=== PATIENT | male | born 2000 | race African-American/Black ===

== ENCOUNTER 2018-07-29 10:57 | Emergency (ER) | payer MEDICAID ==
[2018-07-29] VITALS (17 sets, daily range): BP systolic 106–187; BP diastolic 67–110
[~2018-07-29] VITALS: Ht 182.9 cm; Wt 79.4 kg
[~2018-07-29 10:57] MED LIST: NKM
[2018-07-29] MEDS ORDERED: DiphenhydrAMINE 50mg/ml Inj IM ONE (11:00)
[2018-07-29] MEDS ORDERED: LORazepam Inj 2mg/ml 1ml IM ONE (11:00)
[2018-07-29] MEDS ORDERED: Haloperidol 5mg/ml Inj IM ONE (11:00)
[2018-07-29 11:39] LABS: APPEARANCE,URINE CLEAR; BILIRUBIN, URINE 1+ (NEGATIVE); GLUCOSE, URINE (UA) NEGATIVE (NEGATIVE); KETONES,URINE NEGATIVE (NEGATIVE); LEUKOCYTE ESTERASE ,URINE 1+ (NEGATIVE); NITRITE,URINE NEGATIVE (NEGATIVE); PH,URINE 6 (4.5-8.0); PROTEIN,URINE 2+ (NEGATIVE); UROBILINOGEN,URINE 8 MG/DL (0.0-1.0)
[2018-07-29 11:41] LABS: COLOR,URINE YELLOW
[2018-07-29 11:45] LABS: BASOPHILS % (AUTO) 1.2 % (0.0-2.0); EOSINOPHILS % (AUTO) 0.2 % (0.0-3.0); HEMATOCRIT 45.2 % (42.0-52.0); HEMOGLOBIN 15.1 G/DL (14.2-18.0); LYMPHOCYTES % (AUTO) 54.9 % (20.0-45.0); MEAN CORPUSCULAR VOLUME 86 FL (80-99); MONOCYTES % (AUTO) 6.4 % (1.0-10.0); NEUTROPHILS % (AUTO) 37.3 % (45.0-75.0); PLATELET COUNT 212 K/UL (150-450); RED BLOOD COUNT 5.28 M/UL (4.70-6.10); RED CELL DISTRIBUTION WIDTH 11.6 % (11.6-14.8)
[2018-07-29 11:48] LABS: ANION GAP 10 mmol/L (5-15); BLOOD UREA NITROGEN 15 mg/dL (7-18); CALCIUM 9.5 MG/DL (8.5-10.1); CARBON DIOXIDE 26 MMOL/L (21-32); CHLORIDE 105 MMOL/L (98-107); CREATININE 1.3 MG/DL (0.55-1.30); POTASSIUM 3.3 MMOL/L (3.5-5.1); SODIUM 141 MMOL/L (136-145)
[2018-07-29 11:59] LABS: ALANINE AMINOTRANSFERASE 26 U/L (12-78); ALBUMIN 4.2 G/DL (3.4-5.0); ALBUMIN/GLOBULIN RATIO 1.4 (1.0-2.7); ALKALINE PHOSPHATASE 57 U/L (46-116); ASPARTATE AMINO TRANSFERASE 25 U/L (15-37); BILIRUBIN,TOTAL 1.1 MG/DL (0.2-1.0); CREATINE KINASE 204 U/L (26-308)
[2018-07-29 12:00] LABS: BILIRUBIN,DIRECT 0.2 MG/DL (0.0-0.3)
[2018-07-29] MEDS ORDERED: LORazepam Inj 2mg/ml 1ml ONE (12:46)
[2018-07-29] MEDS ORDERED: LORazepam Inj 2mg/ml 1ml IV ONE (13:00)
--- NOTE | 2018-07-29 13:40 | Diagnostic Imaging Report ---
INDICATION: Acute loss of consciousness TECHNIQUE: Multiple, contiguous 2.5 mm axial cuts of the brain are obtained from the posterior fossa to the cranial vault. Sagittal and coronal reformatted images provided. No IV contrast is administered. One or more of the following dose reduction techniques were used: automated exposure control, adjustment of the mA and/or kV according to patient size, use of iterative reconstruction technique. COMPARISON: None FINDINGS: No intracranial hemorrhage, abnormal intra- or extra-axial collections or parenchymal lesions are seen. The shape and configuration of the cortical sulci, basal cisterns and ventricles are within normal limits. The perez-white differentiation is preserved. No evidence of mass effect, midline shift, or edema. The osseous structures are unremarkable. The visualized portions of the paranasal sinuses are clear. CTDI: 70.38 mGy DLP: 1439.2 mGycm
--- NOTE | 2018-07-29 15:45 | Emergency Room Report ---
History of Present Illness General Chief Complaint: Behavioral Complaint Source: EMS (Eyal Rodarte MD) Present Illness HPI Patient brought in by EMS and [employer]. There was a stand off as the patient was in a car and refused to come out. Paramedics found the patient in agitated delirium he gave the patient 5 of Versed IM. After that the patient was able to be handcuffed to the gurney and brought to us. Mask was placed. They had no prior history on the patient. No drug paraphernalia was seen at or in the car. Glucose in the field was normal. Patient tachycardic. He did communicate with paramedics or PD. No other history is available at this time. (Eyal Rodarte MD) Allergies: Coded Allergies: No Known Allergies (Unverified , 07/29/18) Patient History Limited by: medical condition Past Medical History: see triage record Social History: Reports: drug use - see tox Social History Narrative unknown Reviewed Nursing Documentation: PMH: Agreed; PSxH: Agreed (Eyal Rodarte MD) Nursing Documentation-PMH Past Medical History: No Stated History (Eyal Rodarte MD) Review of Systems All Other Systems: limited (Eyal Rodarte MD) Physical Exam Vital Signs Date Time Temp Pulse Resp B/P (MAP) Pulse Ox O2 Delivery O2 Flow Rate FiO2 07/29/18 10:46 98.1 95 16 116/72 95 Room Air General Appearance: other - agitated and refusing to cooperate, but then slightly lethargic Head: normocephalic, atraumatic Eyes: bilateral eye PERRL, bilateral eye EOMI, bilateral eye Scleral Injection ENT: moist mucus membranes - no lingual trauma Neck: full range of motion, supple Respiratory: chest non-tender, lungs clear, normal breath sounds Cardiovascular #1: regular rate, rhythm Cardiovascular #2: 2+ radial (R) Gastrointestinal: non tender, decreased bowel sounds, scaphoid Genitourinary: penis normal Musculoskeletal: back normal, normal range of motion Neurologic: motor strength/tone normal, DTRs symmetric, sensory intact, no Babinski, other - not speaking Psychiatric: other - lethargic Skin: normal color, no rash, warm/dry (Eyal Rodarte MD) Procedures Critical Care Time Critical Care Time Total Critical Care Time: 30 min bedside evaluation and treatment excludes procedures (EKG). Reason for critical care: agitated delirium requiring sedation and repeated exams Possible complications: hypotension, hypertension, SC, shock, arrhythmias, metabolic acidosis, end organ damage, respiratory failure. Interventions: sedation, repeat exams, repeat sedation for CT, IV hydration Course: Patient with agitated delirium. Restraints and sedation required for evaluation and treatment. Repeat Ativan to perform CT of head. Sedation adequate and patient resting. Restraints removed. Resting and will need psychiatric evaluation and treatment. Discussed with covering ERMD. Consultations: nursing staff, EMS, PD, radiology Performed by: Dr. Rodarte Tolerated well condition = serious, but improved (Eyal Rodarte MD) Medical Decision Making Medical: Substance Abuse Behavioral: Other - agetated delirium Reaction to Intervention: No change Restraint Reassesment I, Eyal Rodarte MD, have personally evaluated this patient. Laboratory tests have been reviewed and addressed accordingly. The patient is deemed to present a danger to himself and/or others. This is based on the exam, history ( provided by EMS/[employer]) and observed behavior. Attempts for non-invasive measures have been considered and/or attempted, however, have been futile. It is in the best interest of the nursing staff, the patient, and others involved in this patient's care that behavioral restraints be applied. Patient evaluation reveals the following: combative and not responding to attempts for de-escalation. (Eyal Rodarte MD) Diagnostic Impression: Primary Impression: Psychosis Qualified Codes: F28 - Other psychotic disorder not due to a substance or known physiological condition Additional Impression: Substance abuse ER Course Patient in car treated for agitated delirium with Versed in the field. DDx: psychosis, drug ingestion, electrolyte abnormalities, head trauma amongst others. Evaluation with EKG, CT head, CXR and labs. Patient fighting and we are unable to proceed with evaluation safely. Restraints applied and sedation ordered. Patient placed on a 5150 by [facility] team. Patient sedated. Still moving in CT and Ativan ordered. Able to perform the CT. EKG without injury. CXR clear. CT no intracranial lesions. Labs with normal WBC and CMP. (K slightly low, min renal insufficiency) Tox + amphetamine, THC (benzos given in field). Sedated and restraints removed. Still not answer questions. IV hydration continued. Signed out to Dr. Helton. Laboratory Tests Test 07/29/18 11:24 07/29/18 11:26 White Blood Count 4.0 K/UL (4.8-10.8) L Red Blood Count 5.28 M/UL (4.70-6.10) Hemoglobin 15.1 G/DL (14.2-18.0) Hematocrit 45.2 % (42.0-52.0) Mean Corpuscular Volume 86 FL (80-99) Mean Corpuscular Hemoglobin 28.7 PG (27.0-31.0) Mean Corpuscular Hemoglobin Concent 33.5 G/DL (32.0-36.0) Red Cell Distribution Width 11.6 % (11.6-14.8) Platelet Count 212 K/UL (150-450) Mean Platelet Volume 5.5 FL (6.5-10.1) L Neutrophils (%) (Auto) 37.3 % (45.0-75.0) L Lymphocytes (%) (Auto) 54.9 % (20.0-45.0) H Monocytes (%) (Auto) 6.4 % (1.0-10.0) Eosinophils (%) (Auto) 0.2 % (0.0-3.0) Basophils (%) (Auto) 1.2 % (0.0-2.0) Sodium Level 141 MMOL/L (136-145) Potassium Level 3.3 MMOL/L (3.5-5.1) L Chloride Level 105 MMOL/L (98-107) Carbon Dioxide Level 26 MMOL/L (21-32) Anion Gap 10 mmol/L (5-15) Blood Urea Nitrogen 15 mg/dL (7-18) Creatinine 1.3 MG/DL (0.55-1.30) Estimate Glomerular Filtration Rate > 60 mL/min (>60) Glucose Level 90 MG/DL (74-106) Calcium Level 9.5 MG/DL (8.5-10.1) Total Bilirubin 1.1 MG/DL (0.2-1.0) H Direct Bilirubin 0.2 MG/DL (0.0-0.3) Aspartate Amino Transferase (AST) 25 U/L (15-37) Alanine Aminotransferase (ALT) 26 U/L (12-78) Alkaline Phosphatase 57 U/L (46-116) Total Creatine Kinase 204 U/L (26-308) Total Protein 7.3 G/DL (6.4-8.2) Albumin 4.2 G/DL (3.4-5.0) Globulin 3.1 g/dL Albumin/Globulin Ratio 1.4 (1.0-2.7) Salicylates Level < 0.2 ug/mL (2.8-20) L Acetaminophen Level < 2 MCG/ML (10-30) L Serum Alcohol < 3 mg/dL Urine Color Yellow Urine Appearance Clear Urine pH 6 (4.5-8.0) Urine Specific [place] 1.020 (1.005-1.035) Urine Protein 2+ (NEGATIVE) H Urine Glucose (UA) Negative (NEGATIVE) Urine Ketones Negative (NEGATIVE) Urine Blood Negative (NEGATIVE) Urine Nitrite Negative (NEGATIVE) Urine Bilirubin 1+ (NEGATIVE) H Urine Ictotest Negative (NEGATIVE) Urine Urobilinogen 8 MG/DL (0.0-1.0) H Urine Leukocyte Esterase 1+ (NEGATIVE) H Urine RBC 0 /HPF (0 - 0) Urine WBC 0-2 /HPF (0 - 0) Urine Squamous Epithelial Cells Occasional /LPF Urine Bacteria Occasional /HPF (NONE) Urine Opiates Screen Negative (NEGATIVE) Urine Barbiturates Screen Negative (NEGATIVE) Phencyclidine (PCP) Screen Negative (NEGATIVE) Urine Amphetamines Screen Positive (NEGATIVE) H Urine Benzodiazepines Screen Positive (NEGATIVE) H Urine Cocaine Screen Negative (NEGATIVE) Urine Marijuana (THC) Screen Positive (NEGATIVE) H (Eyal Rodarte MD) ER Course Patient is medically cleared for psychiatric placement.Patient was endorsed to me by Dr. Rodarte. Patient had been placed on a 5150 by smart team. Patient was noted to be somnolent after medications. Patient will likely be transferred for psychiatric evaluation. Labs Test 07/29/18 11:24 07/29/18 11:26 White Blood Count 4.0 K/UL (4.8-10.8) Red Blood Count 5.28 M/UL (4.70-6.10) Hemoglobin 15.1 G/DL (14.2-18.0) Hematocrit 45.2 % (42.0-52.0) Mean Corpuscular Volume 86 FL (80-99) Mean Corpuscular Hemoglobin 28.7 PG (27.0-31.0) Mean Corpuscular Hemoglobin Concent 33.5 G/DL (32.0-36.0) Red Cell Distribution Width 11.6 % (11.6-14.8) Platelet Count 212 K/UL (150-450) Mean Platelet Volume 5.5 FL (6.5-10.1) Neutrophils (%) (Auto) 37.3 % (45.0-75.0) Lymphocytes (%) (Auto) 54.9 % (20.0-45.0) Monocytes (%) (Auto) 6.4 % (1.0-10.0) Eosinophils (%) (Auto) 0.2 % (0.0-3.0) Basophils (%) (Auto) 1.2 % (0.0-2.0) Sodium Level 141 MMOL/L (136-145) Potassium Level 3.3 MMOL/L (3.5-5.1) Chloride Level 105 MMOL/L (98-107) Carbon Dioxide Level 26 MMOL/L (21-32) Anion Gap 10 mmol/L (5-15) Blood Urea Nitrogen 15 mg/dL (7-18) Creatinine 1.3 MG/DL (0.55-1.30) Estimat Glomerular Filtration Rate > 60 mL/min (>60) Glucose Level 90 MG/DL (74-106) Calcium Level 9.5 MG/DL (8.5-10.1) Total Bilirubin 1.1 MG/DL (0.2-1.0) Direct Bilirubin 0.2 MG/DL (0.0-0.3) Aspartate Amino Transf (AST/SGOT) 25 U/L (15-37) Alanine Aminotransferase (ALT/SGPT) 26 U/L (12-78) Alkaline Phosphatase 57 U/L (46-116) Total Creatine Kinase 204 U/L (26-308) Total Protein 7.3 G/DL (6.4-8.2) Albumin 4.2 G/DL (3.4-5.0) Globulin 3.1 g/dL Albumin/Globulin Ratio 1.4 (1.0-2.7) Salicylates Level < 0.2 ug/mL (2.8-20) Acetaminophen Level < 2 MCG/ML (10-30) Serum Alcohol < 3 mg/dL Urine Color Yellow Urine Appearance Clear Urine pH 6 (4.5-8.0) Urine Specific [place] 1.020 (1.005-1.035) Urine Protein 2+ (NEGATIVE) Urine Glucose (UA) Negative (NEGATIVE) Urine Ketones Negative (NEGATIVE) Urine Blood Negative (NEGATIVE) Urine Nitrite Negative (NEGATIVE) Urine Bilirubin 1+ (NEGATIVE) Urine Ictotest Negative (NEGATIVE) Urine Urobilinogen 8 MG/DL (0.0-1.0) Urine Leukocyte Esterase 1+ (NEGATIVE) Urine RBC 0 /HPF (0 - 0) Urine WBC 0-2 /HPF (0 - 0) Urine Squamous Epithelial Cells Occasional /LPF Urine Bacteria Occasional /HPF (NONE) Urine Opiates Screen Negative (NEGATIVE) Urine Barbiturates Screen Negative (NEGATIVE) Phencyclidine (PCP) Screen Negative (NEGATIVE) Urine Amphetamines Screen Positive (NEGATIVE) Urine Benzodiazepines Screen Positive (NEGATIVE) Urine Cocaine Screen Negative (NEGATIVE) Urine Marijuana (THC) Screen Positive (NEGATIVE) (Fernando Helton MD) EKG Diagnostic Results Rate: bradycardiac Rhythm: NSR ST Segments: no acute changes (Eyal Rodarte MD) Rhythm Strip Diag. Results EP Interpretation: yes Rhythm: NSR, no PVC's, no ectopy (Eyal Rodarte MD) Chest X-Ray Diagnostic Results Chest X-Ray Diagnostic Results : Chest X-Ray Ordered: Yes # of Views/Limited/Complete: 1 View Indication: Other Interpretation: no consolidation, no effusion, no pneumothorax Impression: No acute disease Electronically Signed by: Electronically signed by Eyal Rodarte MD (Eyal Rodarte MD) CT/MRI/US Diagnostic Results CT/MRI/US Diagnostic Results : Imaging Test Ordered: Head Impression no intracranial patholog (Eyal Rodarte MD) Last Vital Signs Date Time Temp Pulse Resp B/P (MAP) Pulse Ox O2 Delivery O2 Flow Rate FiO2 07/29/18 18:09 98.7 87 16 125/72 100 Room Air Status: improved (Eyal Rodarte MD) Status: improved (Fernando Helton MD) Disposition: XFER TO PSYCH HOSP/UNIT Condition: Stable Scripts Risperidone* (RISPERDAL*) 2 Mg Tablet 2 MG ORAL DAILY, #30 TAB 0 Refills Prov: Charlie Griffin MD 07/30/18 Referrals: NOT CHOSEN IPA/,REFERRING (PCP) Eyal Rodarte MD Jul 29, 2018 15:45 Fernando Helton MD Jul 29, 2018 20:37
[2018-07-30 03:20] VITALS: BP 120/69
[2018-07-30 06:05] VITALS: BP 121/72
[2018-07-30 07:24] VITALS: BP 110/68
[2018-07-30] MEDS ORDERED: RISPERDAL2 MG ORAL (11:01)
[2018-07-30 11:08] VITALS: BP 116/72
--- NOTE | 2018-07-30 11:31 | Diagnostic Imaging Report ---
Indication: Dyspnea Technique: One view of the chest Comparison: none Findings: Lungs and pleural spaces are clear. Heart size is normal Impression: No acute process
--- NOTE | 2018-07-30 13:05 | Emergency Room Report ---
Physical Exam Vital Signs Date Time Temp Pulse Resp B/P (MAP) Pulse Ox O2 Delivery O2 Flow Rate FiO2 07/29/18 10:46 98.1 95 16 116/72 95 Room Air Medical Decision Making Diagnostic Impression: Primary Impression: Psychosis Qualified Codes: F29 - Unspecified psychosis not due to a substance or known physiological condition Additional Impression: Substance abuse ER Course Hospital Course 17 yo M presents for behavioral disorder Clinical course Patient initially seen and evaluated by Dr Rodarte; please see his note for full history and physical Patient observed overnight with no psychotic events. Patient denies any SI or HI here. States he was set up. Patient is on 5150 hold Patient evaluated by Dr. Acuña (psychiatry); she agrees patient is not danger to self or others. Behavior is likely related to substance abuse. Amphetamine positive 5150 hold lifted. We'll discharged to home with prescription for risperdol. I' ll also provide mental health referrals i. I feel this is a highly complex case requiring extensive working including EKG/Rhythm strip, Xray/CT/US, Blood/urine lab work, repeat exams while in ED, and administration of strong opiates/narcotics for pain control, admission to hospital or close patient follow up. Diagnosis - psychosis, substance abuse Stable and discharged to home with Rx Risperdol. Followup with PMD/psych. Return to ED if symptoms recur or worsen Labs Test 07/29/18 11:24 07/29/18 11:26 White Blood Count 4.0 K/UL (4.8-10.8) Red Blood Count 5.28 M/UL (4.70-6.10) Hemoglobin 15.1 G/DL (14.2-18.0) Hematocrit 45.2 % (42.0-52.0) Mean Corpuscular Volume 86 FL (80-99) Mean Corpuscular Hemoglobin 28.7 PG (27.0-31.0) Mean Corpuscular Hemoglobin Concent 33.5 G/DL (32.0-36.0) Red Cell Distribution Width 11.6 % (11.6-14.8) Platelet Count 212 K/UL (150-450) Mean Platelet Volume 5.5 FL (6.5-10.1) Neutrophils (%) (Auto) 37.3 % (45.0-75.0) Lymphocytes (%) (Auto) 54.9 % (20.0-45.0) Monocytes (%) (Auto) 6.4 % (1.0-10.0) Eosinophils (%) (Auto) 0.2 % (0.0-3.0) Basophils (%) (Auto) 1.2 % (0.0-2.0) Sodium Level 141 MMOL/L (136-145) Potassium Level 3.3 MMOL/L (3.5-5.1) Chloride Level 105 MMOL/L (98-107) Carbon Dioxide Level 26 MMOL/L (21-32) Anion Gap 10 mmol/L (5-15) Blood Urea Nitrogen 15 mg/dL (7-18) Creatinine 1.3 MG/DL (0.55-1.30) Estimat Glomerular Filtration Rate > 60 mL/min (>60) Glucose Level 90 MG/DL (74-106) Calcium Level 9.5 MG/DL (8.5-10.1) Total Bilirubin 1.1 MG/DL (0.2-1.0) Direct Bilirubin 0.2 MG/DL (0.0-0.3) Aspartate Amino Transf (AST/SGOT) 25 U/L (15-37) Alanine Aminotransferase (ALT/SGPT) 26 U/L (12-78) Alkaline Phosphatase 57 U/L (46-116) Total Creatine Kinase 204 U/L (26-308) Total Protein 7.3 G/DL (6.4-8.2) Albumin 4.2 G/DL (3.4-5.0) Globulin 3.1 g/dL Albumin/Globulin Ratio 1.4 (1.0-2.7) Salicylates Level < 0.2 ug/mL (2.8-20) Acetaminophen Level < 2 MCG/ML (10-30) Serum Alcohol < 3 mg/dL Urine Color Yellow Urine Appearance Clear Urine pH 6 (4.5-8.0) Urine Specific [place] 1.020 (1.005-1.035) Urine Protein 2+ (NEGATIVE) Urine Glucose (UA) Negative (NEGATIVE) Urine Ketones Negative (NEGATIVE) Urine Blood Negative (NEGATIVE) Urine Nitrite Negative (NEGATIVE) Urine Bilirubin 1+ (NEGATIVE) Urine Ictotest Negative (NEGATIVE) Urine Urobilinogen 8 MG/DL (0.0-1.0) Urine Leukocyte Esterase 1+ (NEGATIVE) Urine RBC 0 /HPF (0 - 0) Urine WBC 0-2 /HPF (0 - 0) Urine Squamous Epithelial Cells Occasional /LPF Urine Bacteria Occasional /HPF (NONE) Urine Opiates Screen Negative (NEGATIVE) Urine Barbiturates Screen Negative (NEGATIVE) Phencyclidine (PCP) Screen Negative (NEGATIVE) Urine Amphetamines Screen Positive (NEGATIVE) Urine Benzodiazepines Screen Positive (NEGATIVE) Urine Cocaine Screen Negative (NEGATIVE) Urine Marijuana (THC) Screen Positive (NEGATIVE) Last Vital Signs Date Time Temp Pulse Resp B/P (MAP) Pulse Ox O2 Delivery O2 Flow Rate FiO2 07/30/18 11:08 98.3 76 18 116/72 100 Room Air Status: improved Disposition: HOME, SELF-CARE Condition: Stable Scripts Risperidone* (RISPERDAL*) 2 Mg Tablet 2 MG ORAL DAILY, #30 TAB 0 Refills Prov: Charlie Griffin MD 07/30/18 [facility] Psych ER - Peds ER - [facility] Intake Hotline - Patient Instructions: Self-Destructive Behavior Charlie Griffin MD Jul 30, 2018 13:04
--- NOTE | 2018-07-30 19:40 | Cardiology Report ---
APPROVED REPORT EKG Measurement Heart [id number] elevation, consider early repolarization, pericarditis, or injury Abnormal ECG
--- NOTE | 2018-07-31 03:15 | History and Physical Report ---
DATE OF ADMISSION: 07/29/2018 NOTE: DISTORTED AUDIO HISTORY OF PRESENT ILLNESS: This is a 17-year-old male with a history of substance use disorder, specifically meth and cannabis dependent, who has been admitted to the hospital on a 5150. Apparently, the patient was sitting in his car and the police asked him to come out of the vehicle and he was . The patient denies any suicidal or homicidal ideation. He notes was present during the evaluation. The patient was calm and cooperative. He did not endorse any psychotic or manic symptoms. . The patient is reluctant to take any antipsychotic medication. He denied any auditory or visual hallucinations, and finally he has anger management issues. PAST PSYCHIATRIC HISTORY: He has a history of several psychiatric hospitalizations. He is not taking any psychotropic medication and he is not seeing any psychiatrist. PAST MEDICAL HISTORY: None. ALLERGIES: No known drug allergies. SUBSTANCE ABUSE HISTORY: Significant for meth and marijuana. MENTAL STATUS EXAMINATION: The patient is oriented times self, place, and situation. Mood is anxious. Affect is constricted, congruent with mood. Thought process is linear. Thought content, no suicidal or homicidal ideation. No auditory or visual hallucination was observed. Insight and judgment is fair. ASSESSMENT: AXIS I: 1. Polysubstance dependence. 2. Meth-induced psychosis. AXIS II: Deferred. AXIS III: As above. AXIS IV: Low. AXIS V: 65. PLAN: 1. We will discontinue 5150 hold, as the patient is not in any danger to self or others. 2. Provide the patient with reality orientation and supportive therapy. 3. We will continue to follow . Thalia Acuña M.D. DR: ELIZABETH JOB#: [id number] CC:
== END 2018-07-30 11:09 | disposition home or self-care (01) ==
LOC: EDBD 10:57 → EMR 14:10
DX: F28 Other psychotic disorder not due to a substance or known physiological condition (principal); R00.0 Tachycardia, unspecified; F15.90 Other stimulant use, unspecified, uncomplicated; F12.90 Cannabis use, unspecified, uncomplicated; R00.1 Bradycardia, unspecified
CPT/HCPCS: 36415; 70450; 71045; 80053; 80307; 80329; 81003; 82248; 82550; 85025; 93005; 96361; 96372; 96374; 99291; J1200; J1630